=== PATIENT | male | born 1955 | race African-American/Black ===

== ENCOUNTER 2025-01-20 22:25 | Inpatient (IN) | payer OTHER ==
[~2025-01-20] VITALS: Ht 177.8 cm; Wt 100.2 kg
[2025-01-20 22:29] VITALS: O2SAT 99
[2025-01-20] MEDS: MORPHINE SULFATE 4 MG/ML INJ (FOR IV/IM USE) IV ONE (23:06)
[2025-01-20] MEDS: ONDANSETRON HCL 4MG/2ML INJ IV ONE (23:06)
[2025-01-20] MEDS: SODIUM CHLORIDE 0.9% 1,000 ML IV ONE (23:06)
[2025-01-20] MEDS: KETOROLAC 15MG/ML VIAL IV ONE (23:07)
[2025-01-21 00:22] LABS: BASOPHILS % 0.5 % (0.0-2.0); EOSINOPHILS % 1.3 % (0.0-5.0); HEMATOCRIT. 44.1 % (42.0-52.0); HEMOGLOBIN. 14.5 g/dL (14.0-18.0); LYMPHOCYTES % 12.1 % (20.0-50.0); MEAN PLATELET VOLUME 7.0 fl (7.4-10.4); MONOCYTES % 7.4 % (2.0-8.0); NEUTROPHILS % 78.7 % (40.0-76.0); PLATELET 170 x1000/uL (130-400); RED BLOOD CELL COUNT 4.44 mill/uL (4.7-6.1); RED CELL DISTRIBUTION WIDTH 12.9 % (11.6-14.6)
[2025-01-21 00:36] LABS: CREATININE 1.4 mg/dL (0.6-1.3); UREA NITROGEN BLOOD 12 mg/dL (9-23)
[2025-01-21] MEDS: MORPHINE SULFATE 4 MG/ML INJ (FOR IV/IM USE) IV ONE (00:42)
[2025-01-21] MEDS: ONDANSETRON HCL 4MG/2ML INJ IV ONE (00:42)
[2025-01-21 01:59] LABS: INR 1.0
[2025-01-21] MEDS ORDERED: ONDANSETRON HCL 4MG/2ML INJ IV PRN (02:45)
[2025-01-21] MEDS ORDERED: IPRATROPIUM/ALBUTEROL 0.5-3(2.5)MG/3ML NEB HHN PRN (02:45)
[2025-01-21] MEDS ORDERED: GUAIFENESIN 200MG/10ML SUGAR FREE UDC PO PRN (02:45)
[2025-01-21] MEDS ORDERED: ACETAMINOPHEN 325MG TABLET PO PRN ×2 (02:45)
[2025-01-21] MEDS ORDERED: DOCUSATE SODIUM 100MG CAPSULE PO PRN (02:45)
[2025-01-21] MEDS ORDERED: MAGNESIUM/ALUMINUM HYDROXIDE/SIMETHICONE 30ML UDC PO PRN (02:45)
[2025-01-21] MEDS ORDERED: CLONIDINE 0.1MG TABLET PO PRN (02:45)
[2025-01-21 03:15] VITALS: BP 126/62; PULSE 60; RESP 16; TEMP 36.696
[2025-01-21] MEDS ORDERED: ATOR20TA MT (03:40)
[2025-01-21 04:00] VITALS: BP 110/67; PULSE 69; RESP 18; TEMP 36.7; O2SAT 97
[2025-01-21] MEDS: SODIUM CHLORIDE 0.9% 500 ML IV ONE (06:00)
[2025-01-21] MEDS: TRAMADOL 50MG TABLET PO PRN (07:35)
[2025-01-21 08:00] VITALS: BP 141/78; PULSE 74; RESP 19; TEMP 36.6; O2SAT 97
[2025-01-21] MEDS: ENOXAPARIN 30MG/0.3ML SYR SUBCUT SCH (08:09)
[2025-01-21 12:00] VITALS: BP 125/70; PULSE 70; RESP 18; TEMP 36.7; O2SAT 99
[2025-01-21 16:00] VITALS: BP 132/77; PULSE 75; RESP 18; TEMP 36.6; O2SAT 98
[2025-01-21 16:07] LABS: CLARITY URINE CLEAR (CLEAR); COLOR URINE YELLOW (YELLOW); GLUCOSE URINE NEGATIVE (NEGATIVE); KETONES URINE NEGATIVE (NEGATIVE); LEUKOCYTE ESTERASE URINE NEGATIVE (NEGATIVE); NITRITE URINE NEGATIVE (NEGATIVE); OCCULT BLOOD URINE NEGATIVE (NEGATIVE); PH URINE 5.5 (4.5-8.0); PROTEIN URINE NEGATIVE (NEGATIVE); SPECIFIC GRAVITY URINE 1.027 (1.005-1.030); UROBILINOGEN URINE 0.2 E.U./dL (0.2-1.0)
[2025-01-21 16:15] LABS: *AMPHETAMINES SCREEN URINE NEGATIVE (NEGATIVE); *BARBITURATES SCREEN URINE NEGATIVE (NEGATIVE); *BENZODIAZEPINES SCREEN URINE NEGATIVE (NEGATIVE); *COCAINE SCREEN URINE NEGATIVE (NEGATIVE); METHADONE URINE SCREEN NEGATIVE (NEGATIVE); OPIATES URINE SCREEN PRESUMPTIVE POSITIVE (NEGATIVE)
[2025-01-21 16:16] LABS: CANNABINOID URINE SCREEN NEGATIVE (NEGATIVE); ECSTASY MDMA SCREEN URINE NEGATIVE (NEGATIVE); PHENCYCLIDINE URINE SCREEN NEGATIVE (NEGATIVE)
[2025-01-21] MEDS: ATORVASTATIN CALCIUM 20MG TABLET PO SCH (21:03)
[2025-01-21 21:26] VITALS: BP 130/73; PULSE 77; RESP 20; TEMP 99.4
== END 2025-01-21 22:45 | disposition short-term general hospital (02) | DRG 552 ==
LOC: ER 22:25 → 8WST 01-21 00:40 → EDBEDREQ 01-21 00:41 → EDBEDREQSVC 01-21 00:41 → EDBEDREQTM 01-21 00:41 → EDBEDREQDT 01-21 00:41 → ENRESERV 01-21 01:20 → 4WST 01-21 12:18
PROVIDERS: ADMIT Hospitalist; ATTEND Hospitalist
DX: S32.028A Other fracture of second lumbar vertebra, initial encounter for closed fracture (principal); E87.0 Hyperosmolality and hypernatremia; N17.9 Acute kidney failure, unspecified; E66.9 Obesity, unspecified; I10 Essential (primary) hypertension; N18.9 Chronic kidney disease, unspecified; J45.909 Unspecified asthma, uncomplicated; S63.591A Other specified sprain of right wrist, initial encounter; M47.819 Spondylosis without myelopathy or radiculopathy, site unspecified; M50.30 Other cervical disc degeneration, unspecified cervical region; E78.5 Hyperlipidemia, unspecified; V49.9XXA Car occupant (driver) (passenger) injured in unspecified traffic accident, initial encounter; Y93.89 Activity, other specified; Y92.89 Other specified places as the place of occurrence of the external cause; Y99.8 Other external cause status; Z79.899 Other long term (current) drug therapy; Z85.46 Personal history of malignant neoplasm of prostate; Z90.79 Acquired absence of other genital organ(s); Z68.31 Body mass index [BMI] 31.0-31.9, adult
CPT/HCPCS: 36415; 72131; 73110; 80048; 80305; 81003; 85025; 86850; 86900; 96361; 96374; 96375; 97166; 99285; J1650; J1885; J2270; J2405; J7030